=== PATIENT | male | born 1975 | race American Indian/Alaskan Native ===

== ENCOUNTER 2017-03-08 22:49 | Emergency (ER) | payer MEDICAID, OTHER ==
[2017-03-08 23:56] LABS: Basophils % (Auto) 0.9 % (0.0-1.8); Eosinophils % (Auto) 0.9 % (0.0-4.3); Hematocrit 40.8 % (35.5-45.6); Hemoglobin 13.3 gm/dl (11.8-15.2); Mean Corpuscular HGB Conc 33 % (32-34); Mean Corpuscular Hemoglobin 29 pg (28-32); Mean Corpuscular Volume 88 fl (84-94); Platelet Count 252 K/mm3 (140-440); Red Blood Count 4.61 M/mm3 (3.65-5.03); Red Cell Distribution Width 15.6 % (13.2-15.2); White Blood Count 4.1 K/mm3 (4.5-11.0)
[2017-03-09 00:26] LABS: Alanine Aminotransferase 18 units/L (7-56); Albumin 4.5 g/dL (3.9-5); Albumin/Globulin Ratio 1.5 %; Alkaline Phosphatase 55 units/L (35-129); BUN/Creatinine Ratio 16.25; Bilirubin,Total 0.2 mg/dL (0.1-1.2); Blood Urea Nitrogen 13 mg/dL (9-20); Carbon Dioxide 27 mmol/L (22-30); Chloride 96.2 mmol/L (98-107); Glucose 73 mg/dL (75-100); Lipase 40 units/L (13-60); Potassium 4.2 mmol/L (3.6-5.0); Sodium 138 mmol/L (137-145); Total Protein 7.6 g/dL (6.3-8.2)
[2017-03-09 00:54] LABS: Anion Gap 19 mmol/L
--- NOTE | 2017-03-09 04:28 | Emergency Department Report ---
ED Abdominal Pain HPI - General Chief Complaint: Abdominal Pain Stated Complaint: ABDOMINAL PAIN, HEART BURN Source: patient, family Mode of arrival: Ambulatory Limitations: No Limitations - History of Present Illness Initial Comments: Patient here complaining of abdominal pain and heartburn. Patient started yesterday. He said the pain is in his left lower quadrant. Denies any urinary burning frequency or urgency. Pain is 4-10 and feels crampy. Denies any back pain or testicular pain. Denies any fever or chills. Onset/Timin -: days(s) Location: LLQ Radiation: none Migration to: no migration Severity: mild Severity scale (0 -10): 4 Quality: cramping Consistency: constant Improves With: nothing Worsens With: nothing Context: other (unknown) Associated Symptoms: denies: nausea, vomiting, diarrhea, fever, chills, constipation, dysuria, hematemesis, hematochezia, melena, hematuria, anorexia, syncope Treatments Prior to Arrival: other (none) - Related Data Home Medications Medication Instructions Recorded Confirmed Last Taken valACYclovir [Valtrex] 500 mg PO DAILY 02/02/14 02/23/14 02/28/14 09:00 Previous Rx's Medication Instructions Recorded Last Taken Type HYDROcodone/ACETAMINOPHEN [Vicodin 5 - 325 mg PO Q6HR PRN #24 tablet 02/28/14 Unknown Rx Hp 10-300 mg Tablet] Famotidine [Pepcid] 40 mg PO QDAY #30 tablet 03/09/17 Unknown Rx traMADol [Ultram] 50 mg PO Q6HR PRN #20 tablet 03/09/17 Unknown Rx Allergies Allergy/AdvReac Type Severity Reaction Status Date / Time ibuprofen Allergy Anaphylaxis Verified 08/30/13 17:15 ED Review of Systems ROS: Stated complaint: ABDOMINAL PAIN, HEART BURN Other details as noted in HPI Comment: All other systems reviewed and negative Constitutional: denies: chills, fever Eyes: denies: eye pain ENT: denies: throat pain Respiratory: no symptoms reported Cardiovascular: denies: chest pain, palpitations, edema, syncope Gastrointestinal: denies: abdominal pain, nausea, vomiting Musculoskeletal: denies: back pain, arthralgia Skin: denies: rash Neurological: denies: headache, weakness, numbness, paresthesias, confusion, abnormal gait, vertigo ED Past Medical Hx - Past Medical History Previous Medical History?: Yes Hx GERD: Yes - Surgical History Past Surgical History?: No - Family History Family history: no significant - Social History Smoking Status: Current Every Day Smoker Substance Use Type: None - Medications Home Medications: Home Medications Medication Instructions Recorded Confirmed Last Taken Type valACYclovir [Valtrex] 500 mg PO DAILY 02/02/14 02/23/14 02/28/14 09:00 History HYDROcodone/ACETAMINOPHEN [Vicodin 5 - 325 mg PO Q6HR PRN #24 tablet 02/28/14 Unknown Rx Hp 10-300 mg Tablet] Famotidine [Pepcid] 40 mg PO QDAY #30 tablet 03/09/17 Unknown Rx traMADol [Ultram] 50 mg PO Q6HR PRN #20 tablet 03/09/17 Unknown Rx ED Physical Exam - General Limitations: No Limitations General appearance: alert, in no apparent distress - Head Head exam: Present: atraumatic, normocephalic, normal inspection - Eye Eye exam: Present: normal appearance, PERRL, EOMI. Absent: periorbital swelling , periorbital tenderness Pupils: Present: normal accommodation - ENT ENT exam: Present: normal exam, normal orophraynx, mucous membranes moist, TM's normal bilaterally, normal external ear exam - Neck Neck exam: Present: normal inspection, full ROM. Absent: tenderness, meningismus, lymphadenopathy - Respiratory Respiratory exam: Present: normal lung sounds bilaterally. Absent: respiratory distress, chest wall tenderness - Cardiovascular Cardiovascular Exam: Present: regular rate, normal rhythm, normal heart sounds - GI/Abdominal GI/Abdominal exam: Present: soft, normal bowel sounds. Absent: distended, tenderness, guarding, rebound, rigid - Extremities Exam Extremities exam: Present: normal inspection, full ROM, normal capillary refill. Absent: tenderness, pedal edema, joint swelling, calf tenderness - Back Exam Back exam: Present: normal inspection, full ROM. Absent: tenderness, CVA tenderness (R), CVA tenderness (L), muscle spasm, paraspinal tenderness, vertebral tenderness, rash noted - Neurological Exam Neurological exam: Present: alert, oriented X3, normal gait, reflexes normal. Absent: motor sensory deficit - Psychiatric Psychiatric exam: Present: normal affect, normal mood - Skin Skin exam: Present: warm, dry, intact, normal color. Absent: rash ED Course Vital Signs 03/08/17 03/09/17 23:27 07:13 Temperature 98.4 F Pulse Rate 72 67 Respiratory 18 16 Rate Blood Pressure 125/90 Blood Pressure 119/85 [Left] O2 Sat by Pulse 100 98 Oximetry - Reevaluation(s) Reevaluation #1: 03/09/17 08:44 Patient stable throughout ED stay ED Medical Decision Making - Lab Data Result diagrams: 03/08/17 23:35 03/08/17 23:35 Lab Results 03/08/17 03/08/17 03/09/17 Range/Units 23:35 23:35 04:49 WBC 4.1 L (4.5-11.0) K/mm3 RBC 4.61 (3.65-5.03) M/mm3 Hgb 13.3 (11.8-15.2) gm/dl Hct 40.8 (35.5-45.6) % MCV 88 (84-94) fl MCH 29 (28-32) pg MCHC 33 (32-34) % RDW 15.6 H (13.2-15.2) % Plt Count 252 (140-440) K/mm3 Lymph % (Auto) 45.1 H (13.4-35.0) % Archuleta % (Auto) 10.5 H (0.0-7.3) % Eos % (Auto) 0.9 (0.0-4.3) % Baso % (Auto) 0.9 (0.0-1.8) % Lymph # 1.8 (1.2-5.4) K/mm3 Archuleta # 0.4 (0.0-0.8) K/mm3 Eos # 0.0 (0.0-0.4) K/mm3 Baso # 0.0 (0.0-0.1) K/mm3 Seg Neutrophils % 42.6 (40.0-70.0) % Seg Neutrophils # 1.7 L (1.8-7.7) K/mm3 Sodium 138 (137-145) mmol/L Potassium 4.2 (3.6-5.0) mmol/L Chloride 96.2 L (98-107) mmol/L Carbon Dioxide 27 (22-30) mmol/L Anion Gap 19 mmol/L BUN 13 (9-20) mg/dL Creatinine 0.8 (0.8-1.5) mg/dL Estimated GFR > 60 ml/min BUN/Creatinine Ratio 16.25 % Glucose 73 L (75-100) mg/dL Calcium 9.0 (8.4-10.2) mg/dL Total Bilirubin 0.2 (0.1-1.2) mg/dL AST 32 (5-40) units/L ALT 18 (7-56) units/L Alkaline Phosphatase 55 (35-129) units/L Total Protein 7.6 (6.3-8.2) g/dL Albumin 4.5 (3.9-5) g/dL Albumin/Globulin Ratio 1.5 % Lipase 40 (13-60) units/L Urine Color Yellow (Yellow) Urine Turbidity Clear (Clear) Urine pH 5.0 (5.0-7.0) Ur Specific Mclaughlin 1.017 (1.003-1.030) Urine Protein <15 mg/dl (Negative) mg/dL Urine Glucose (UA) Neg (Negative) mg/dL Urine Ketones Neg (Negative) mg/dL Urine Blood Neg (Negative) Urine Nitrite Neg (Negative) Urine Bilirubin Neg (Negative) Urine Urobilinogen < 2.0 (<2.0) mg/dL Ur Leukocyte Esterase Neg (Negative) Urine WBC (Auto) 1.0 (0.0-6.0) /HPF Urine RBC (Auto) 2.0 (0.0-6.0) /HPF Urine Mucus Few /HPF - Radiology Data Radiology results: report reviewed CT scan of IV contrast revealed normal exam of abdomen and pelvis - Medical Decision Making ED course: I and abdominal pain unspecified cause. Also reporting flareup of acid reflux. He said he was drinking yesterday and he has a history of gastritis. He reports that he was burping a lot but not right now. 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 Patient able to drink fluids in emergency room. Patient discharged home with prescription for Pepcid and Ultram. Critical care attestation.: If time is entered above; I have spent that time in minutes in the direct care of this critically ill patient, excluding procedure time. ED Disposition Clinical Impression: Dyspepsia Abdominal pain Qualifiers: Abdominal location: left lower quadrant Qualified Code(s): R10.32 - Left lower quadrant pain Disposition: DISCHARGED TO HOME OR SELFCARE Is pt being admited?: No Does the pt Need Aspirin: No Condition: Stable Instructions: Chronic Indigestion (ED), Abdominal Pain (ED) Additional Instructions: follow-up with supervisor bridges and buildings for further evaluation and treatment of acid reflux and abdominal pain. Avoid drinking alcohol and eating spicy food. Avoid carbonated beverages Prescriptions: Famotidine [Pepcid] 40 mg PO QDAY #30 tablet traMADol [Ultram] 50 mg PO Q6HR PRN #20 tablet PRN Reason: Pain Referrals: PRIMARY CARE, [Primary Care Provider] - 2-3 Days [facility] [Provider Group] - 2-3 Days [facility] [Outside] - 2-3 Days Forms: Accompanied Note, Work/School Release Form(ED)
[2017-03-09] MEDS: NACL ONE (05:15)
[2017-03-09 05:41] LABS: Bilirubin,Urine NEG (Negative); Blood,Urine NEG (Negative); Ketones,Urine NEG (Negative); Leukocyte Esterase,Urine NEG (Negative); Mucus,Urine FEW /HPF; Nitrite,Urine NEG (Negative); Protein,Urine <15 mg/dL mg/dL (Negative); Urobilinogen,Urine < 2.0 mg/dL (<2.0)
--- NOTE | 2017-03-09 05:48 | Cat Scan Report ---
FINAL REPORT PROCEDURE: CT ABDOMEN PELVIS W CON TECHNIQUE: Computerized axial tomography of the abdomen and pelvis was performed after the IV injection of iodinated nonionic contrast. HISTORY: abdominal pain COMPARISON: 02/19/2014 FINDINGS: Visualized lower thorax: No significant abnormality. Liver: Normal size and attenuation. Spleen: Normal size and attenuation. Gallbladder and biliary system: Normal. Pancreas: Normal. Adrenals: Normal. Kidneys: Normal. GI tract: No obstruction. No ileus or enteritis. The cecum and colon are normal. The appendix has a normal appearance.. Lymph nodes and mesentery: Normal. Vasculature: Normal. Bladder: Normal. Reproductive organs: Normal. Peritoneum: No free fluid. Musculoskeletal structures: No significant abnormality. Other: None. IMPRESSION: There is no evidence of intestinal or urinary tract obstruction. No ileus or enteritis. The appendix is normal.
[2017-03-09 07:14] VITALS: BP 119/85
== END 2017-03-09 07:13 | disposition home or self-care (01) ==
LOC: ED 22:49
DX: R10.13 Epigastric pain (principal); R10.32 Left lower quadrant pain; Z88.6 Allergy status to analgesic agent; K21.9 Gastro-esophageal reflux disease without esophagitis; F17.200 Nicotine dependence, unspecified, uncomplicated
CPT/HCPCS: 36415; 74177; 80053; 81001; 83690; 85025; 87086; 99284; Q9967

== ENCOUNTER 2017-09-06 18:28 | Emergency (ER) | payer SELFPAY ==
[2017-09-06] MEDS ORDERED: ROXICODONE PO ONE (20:19)
[2017-09-06 21:11] LABS: Hematocrit 43.9 % (35.5-45.6); Hemoglobin 14.1 gm/dl (11.8-15.2); Mean Corpuscular HGB Conc 32 % (32-34); Mean Corpuscular Hemoglobin 29 pg (28-32); Mean Corpuscular Volume 91 fl (84-94); Platelet Count 271 K/mm3 (140-440); Red Blood Count 4.83 M/mm3 (3.65-5.03); Red Cell Distribution Width 15.6 % (13.2-15.2); White Blood Count 6.3 K/mm3 (4.5-11.0)
[2017-09-06 21:14] LABS: Anion Gap 17 mmol/L; BUN/Creatinine Ratio 13; Blood Urea Nitrogen 10 mg/dL (9-20); Calcium 9.3 mg/dL (8.4-10.2); Carbon Dioxide 29 mmol/L (22-30); Chloride 98.2 mmol/L (98-107); Creatine Kinase 153 units/L (55-170); Glucose 81 mg/dL (75-100); Potassium 4.3 mmol/L (3.6-5.0); Sodium 140 mmol/L (137-145)
[2017-09-07 08:05] LABS: Bacteria,Urine 1+ /HPF (Negative); Bilirubin,Urine NEG (Negative); Blood,Urine LG (Negative); Ketones,Urine NEG (Negative); Leukocyte Esterase,Urine LG (Negative); Mucus,Urine FEW /HPF; Nitrite,Urine POS (Negative)
[2017-09-07 08:09] LABS: WBC,Urine > 182.0 /HPF (0.0-6.0)
[2017-09-07] MEDS ORDERED: NACL 0.9% 1000 ML 1,000 ML IV ONE (10:14)
[2017-09-07] MEDS ORDERED: ROCEPHIN/NS 1 GM/50 ML 1 GM/50 ML BAG IV ONE (10:14)
[2017-09-07] MEDS ORDERED: MORPHINE IV ONE (10:14)
--- NOTE | 2017-09-07 10:26 | Emergency Department Report ---
HPI - General Chief Complaint: Urogenital-Male Time Seen by Provider: 09/07/17 10:05 - HPI HPI: This is a 42-year-old Afro-[place] male presents to the emergency department with complaint of a 3 to four-day history of some painful urination and some right lower quadrant/flank pain. The patient says that he noticed some blood in the urine recently. He did not take anything for his symptoms prior to presentation. He denies any past medical history. He does not have a primary care physician. No recent travel or sick contacts at home. Patient says that he has in a committed relationship and denies any concern for STD and also has not been having any penile discharge or any lesions. He denies any fever, back pain, nausea, vomiting. ED Past Medical Hx - Past Medical History Previous Medical History?: Yes Hx GERD: Yes - Surgical History Past Surgical History?: Yes Additional Surgical History: Head and Hernia - Social History Smoking Status: Current Every Day Smoker Substance Use Type: Alcohol - Medications Home Medications: Home Medications Medication Instructions Recorded Confirmed Last Taken Type valACYclovir [Valtrex] 500 mg PO DAILY 02/02/14 02/23/14 02/28/14 09:00 History Famotidine [Pepcid] 40 mg PO QDAY #30 tablet 03/09/17 Unknown Rx traMADol [Ultram] 50 mg PO Q6HR PRN #20 tablet 03/09/17 Unknown Rx Cephalexin [Keflex] 500 mg PO Q8HR #21 cap 09/07/17 Unknown Rx HYDROcodone/ACETAMINOPHEN [Vicodin 5 - 325 mg PO Q6HR PRN #12 tablet 09/07/17 Unknown Rx HP 10-300 mg TAB] ED Review of Systems ROS: Stated complaint: PAINFUL URINATION/RT ABD PAIN Other details as noted in HPI Comment: All other systems reviewed and negative Constitutional: denies: chills, fever Eyes: denies: eye pain, eye discharge, vision change ENT: denies: ear pain, throat pain Respiratory: denies: cough, shortness of breath, wheezing Cardiovascular: denies: chest pain, palpitations Gastrointestinal: abdominal pain. denies: nausea, vomiting Genitourinary: dysuria, hematuria. denies: discharge Musculoskeletal: denies: back pain, joint swelling, arthralgia Skin: denies: rash, lesions Neurological: denies: headache, weakness, paresthesias Physical Exam - Physical Exam Vital Signs: Vital Signs 09/06/17 09/06/17 09/07/17 20:12 20:30 07:57 Temperature 98.4 F 99 F Pulse Rate 62 72 Respiratory 18 18 Rate Blood Pressure 117/75 Blood Pressure 103/74 [Left] O2 Sat by Pulse 98 100 Oximetry Physical Exam: GENERAL: The patient is well-developed well-nourished. HENT: Normocephalic. Atraumatic. Patient has moist mucous membranes. EYES: Extraocular motions are intact. Pupils equal reactive to light bilaterally. NECK: Supple. Trachea is midline. CHEST/LUNGS: Clear to auscultation. There is no respiratory distress noted. HEART/CARDIOVASCULAR: Regular. There is no tachycardia. There is no gallop rub or murmur. ABDOMEN: Abdomen is soft. Unable to reproduce his flank and abdominal pain to palpation. Patient has normal bowel sounds. There is no abdominal distention. SKIN: Skin is warm and dry. NEURO: The patient is awake, alert, and oriented. The patient is cooperative. The patient has no focal neurologic deficits. The patient has normal speech and gait. MUSCULOSKELETAL: There is no tenderness or deformity. There is no limitation range of motion. There is no evidence of acute injury. ED Course Vital Signs 09/06/17 09/06/17 09/07/17 20:12 20:30 07:57 Temperature 98.4 F 99 F Pulse Rate 62 72 Respiratory 18 18 Rate Blood Pressure 117/75 Blood Pressure 103/74 [Left] O2 Sat by Pulse 98 100 Oximetry ED Medical Decision Making - Lab Data Result diagrams: 09/06/17 20:39 09/06/17 20:39 - Radiology Data Radiology results: report reviewed CT OF THE ABDOMEN AND PELVIS WITHOUT CONTRAST HISTORY: Right flank pain, hematuria, UTI.. TECHNIQUE: Helical CT without contrast. Sagittal and coronal reformatted images. FINDINGS: A solitary 2 mm calyceal stone is noted in the inferior right kidney. No additional renal stones are appreciated. The course of the right ureter is difficult to follow secondary to lack of intra-abdominal fat. There are 2 calcifications in the vicinity of the proximal right ureter measuring up to 2 mm on image 174, series 2 which could represent nonobstructing right ureteral stones. There is mild diffuse bladder wall thickening which is consistent with a cystitis. No bladder stones are visualized. Within the limits of a noncontrast exam, the remaining abdominal and pelvic viscera are within normal limits. The liver, biliary system, pancreas, spleen, and adrenal glands are unremarkable. The bowel loops are normal caliber and wall thickness. Normal appendix. The aorta is normal caliber. No ascites, bulky adenopathy or inflammatory changes. The lung bases are clear. Normal heart size. No suspicious bony lesion. IMPRESSION: Right nephrolithiasis as outlined above. Findings consistent with cystitis. - Medical Decision Making 42-year-old male presents with some right-sided flank pain and some dysuria and no hematuria. Labs show a significant urinary tract infection with some hematuria. No leukocytosis and no renal insufficiency. CT was done that showed a intrarenal stone and suspicion for 2 cm ureteral stone. However radiology had trouble definitively listing the ureteral stone as the patient does not have a lot of adipose tissue. However with the UTI, flank pain and hematuria it does appear consistent with renal colic and nephrolithiasis. He was given a dose of IV antibiotics and IV fluid resuscitation. Patient will be discharged home with pain medication and antibiotics and a strainer for his urine to try and catch the calculus. He will be given a referral for both primary care and urology. He will return to the ER with any worsening of symptoms or any acute distress. - Differential Diagnosis nephrolithiasis, pyelonephritis, appendicitis, colitis Critical Care Time: No Critical care attestation.: If time is entered above; I have spent that time in minutes in the direct care of this critically ill patient, excluding procedure time. ED Disposition Clinical Impression: Right flank pain, Renal colic on right side, Nephrolithiasis UTI (urinary tract infection) Qualifiers: Urinary tract infection type: acute cystitis Hematuria presence: with hematuria Qualified Code(s): N30.01 - Acute cystitis with hematuria Disposition: TO HOME OR SELFCARE Is pt being admited?: No Condition: Stable Instructions: Kidney Stones (ED), Renal Colic (ED), How to Strain Your Urine ( ED), Flank Pain (ED) Additional Instructions: Please follow up with a primary care physician in the next few days. I have given you a referral for a local urologist, Dr. Ernst, to follow up regarding your urinary tract infection and suspected kidney stones. Return to the emergency department with any development of fever, inability to urinate, worsening of your symptoms, or any acute distress. You have been prescribed a medication that is sedating and therefore should not be taken prior to driving, working, and responsible for children and in no way should be mixed with alcohol of any quantity. Prescriptions: HYDROcodone/ACETAMINOPHEN [Vicodin HP 10-300 mg TAB] 5 - 325 mg PO Q6HR PRN #12 tablet PRN Reason: Pain Referrals: PRIMARY CARE, [Primary Care Provider] - 3-5 Days LETY ERNST MD [Staff Physician] - 3-5 Days JEAN CLAUDE MCCLELLAN MD [Staff Physician] - 3-5 Days [facility] [Outside] - 3-5 Days Forms: Work/School Release Form(ED) Time of Disposition: 12:10
--- NOTE | 2017-09-07 11:56 | Cat Scan Report ---
CT OF THE ABDOMEN AND PELVIS WITHOUT CONTRAST HISTORY: Right flank pain, hematuria, UTI.. TECHNIQUE: Helical CT without contrast. Sagittal and coronal reformatted images. FINDINGS: A solitary 2 mm calyceal stone is noted in the inferior right kidney. No additional renal stones are appreciated. The course of the right ureter is difficult to follow secondary to lack of intra-abdominal fat. There are 2 calcifications in the vicinity of the proximal right ureter measuring up to 2 mm on image 174, series 2 which could represent nonobstructing right ureteral stones. There is mild diffuse bladder wall thickening which is consistent with a cystitis. No bladder stones are visualized. Within the limits of a noncontrast exam, the remaining abdominal and pelvic viscera are within normal limits. The liver, biliary system, pancreas, spleen, and adrenal glands are unremarkable. The bowel loops are normal caliber and wall thickness. Normal appendix. The aorta is normal caliber. No ascites, bulky adenopathy or inflammatory changes. The lung bases are clear. Normal heart size. No suspicious bony lesion. IMPRESSION: Right nephrolithiasis as outlined above. Findings consistent with cystitis.
[2017-09-07 12:42] VITALS: BP 122/74
== END 2017-09-07 12:30 | disposition home or self-care (01) ==
LOC: ED 18:28
DX: N20.0 Calculus of kidney (principal); N39.0 Urinary tract infection, site not specified; F17.210 Nicotine dependence, cigarettes, uncomplicated; K21.9 Gastro-esophageal reflux disease without esophagitis
CPT/HCPCS: 36415; 74176; 80048; 81001; 82550; 85027; 87591; 96365; 96375; 99284; J0696; J2270; J7030

== ENCOUNTER 2018-03-11 17:31 | Emergency (ER) | payer OTHER ==
[2018-03-11 17:52] VITALS: BP 110/73
== END 2018-03-11 22:13 | disposition left against medical advice (07) ==
LOC: ED 17:31
DX: R51 Headache (principal); M79.1 Myalgia; Z53.21 Procedure and treatment not carried out due to patient leaving prior to being seen by health care provider

== ENCOUNTER 2018-05-23 16:48 | Emergency (ER) | payer SELFPAY ==
[2018-05-23 22:15] VITALS: BP 130/68
[2018-05-23 22:25] LABS: Bacteria,Urine 1+ /HPF (Negative); Bilirubin,Urine NEG (Negative); Blood,Urine NEG (Negative); Color,Urine Yellow (Yellow); Mucus,Urine FEW /HPF; Protein,Urine <15 mg/dL mg/dL (Negative); Urobilinogen,Urine < 2.0 mg/dL (<2.0)
[2018-05-23] MEDS ORDERED: TORADOL IM ONE (22:52)
--- NOTE | 2018-05-23 22:59 | Emergency Department Report ---
HPI - General Chief Complaint: Urogenital-Male Time Seen by Provider: 05/23/18 22:43 - HPI HPI: [place] 25 The patient is a 43-year-old male presenting with chief complaint of right flank pain. The patient states for 3 weeks she's had bilateral flank pain but now is limited to the right side. The patient states 1 week ago he had a few episodes of hematuria but has since resolved. The patient states this presentation is similar to his presentation last year when he was diagnosed with kidney stones. Patient denies dysuria or penile discharge. The patient currently gets his pain is score of 7/10 Location: Right flank Duration: [See above] Quality: Pain Severity:7/10 Modifying factors: [see above] Context: [see above] Mode of transportation: Taxi ED Past Medical Hx - Past Medical History Previous Medical History?: Yes Hx GERD: Yes - Surgical History Past Surgical History?: Yes Additional Surgical History: Skin excision from scalp. Herniorrhaphy - Family History Family history: no significant - Social History Smoking Status: Current Every Day Smoker (1/7 per day) Substance Use Type: None (denies illicit drug use), Alcohol (occasional) - Medications Home Medications: Home Medications Medication Instructions Recorded Confirmed Last Taken Type valACYclovir [Valtrex] 500 mg PO DAILY 02/02/14 02/23/14 02/28/14 09:00 History Famotidine [Pepcid] 40 mg PO QDAY #30 tablet 03/09/17 Unknown Rx traMADol [Ultram] 50 mg PO Q6HR PRN #20 tablet 03/09/17 Unknown Rx Cephalexin [Keflex] 500 mg PO Q8HR #21 cap 09/07/17 Unknown Rx HYDROcodone/ACETAMINOPHEN [Vicodin 5 - 325 mg PO Q6HR PRN #12 tablet 09/07/17 Unknown Rx HP 10-300 mg TAB] Metaxalone [Skelaxin] 800 mg PO TID #10 tablet 05/24/18 Unknown Rx traMADol [Ultram] 50 mg PO Q6HR PRN #14 tablet 05/24/18 Unknown Rx ED Review of Systems ROS: Stated complaint: BLOOD IN URINE Other details as noted in HPI Constitutional: fever (subjective) Eyes: denies: eye pain ENT: denies: throat pain Cardiovascular: denies: chest pain Gastrointestinal: denies: abdominal pain Genitourinary: hematuria. denies: dysuria, discharge Musculoskeletal: back pain (right flank pain) Neurological: denies: headache Physical Exam - Physical Exam Vital Signs: Vital Signs 05/23/18 05/23/18 05/23/18 17:06 22:14 22:15 Temperature 98.3 F 99 F Pulse Rate 96 H 102 H Respiratory 18 16 18 Rate Blood Pressure 133/102 Blood Pressure 130/68 [Left] O2 Sat by Pulse 100 97 97 Oximetry Physical Exam: GENERAL: The patient is well-developed well-nourished male lying on stretcher not appearing to be in acute distress. [] HEENT: Normocephalic. Atraumatic. Extraocular motions are intact. Patient has moist mucous membranes. NECK: Supple. Trachea midline CHEST/LUNGS: Clear to auscultation. There is no respiratory distress noted. HEART/CARDIOVASCULAR: Regular. There is no tachycardia. There is no gallop rub or murmur. ABDOMEN: Abdomen is soft, nontender. Patient has normal bowel sounds. There is no abdominal distention. SKIN: There is no rash. There is no edema. There is no diaphoresis. NEURO: The patient is awake, alert, and oriented. The patient is cooperative. The patient has normal speech and gait. MUSCULOSKELETAL: There is no CVA tenderness. There is no evidence of acute injury. ED Course Vital Signs 05/23/18 05/23/18 05/23/18 17:06 22:14 22:15 Temperature 98.3 F 99 F Pulse Rate 96 H 102 H Respiratory 18 16 18 Rate Blood Pressure 133/102 Blood Pressure 130/68 [Left] O2 Sat by Pulse 100 97 97 Oximetry ED Medical Decision Making - Lab Data Result diagrams: 05/23/18 23:27 05/23/18 23:27 Laboratory Tests 05/23/18 05/23/18 05/23/18 22:00 23:27 23:27 WBC 4.7 RBC 5.09 H Hgb 14.8 Hct 44.4 MCV 87 MCH 29 MCHC 33 RDW 15.2 Plt Count 280 Lymph % (Auto) 46.3 H Richardson % (Auto) 8.3 H Eos % (Auto) 0.6 Baso % (Auto) 1.8 Lymph # 2.2 Richardson # 0.4 Eos # 0.0 Baso # 0.1 Seg Neutrophils % 43.0 Seg Neutrophils # 2.0 Sodium 132 L Potassium 4.1 Chloride 95.2 L Carbon Dioxide 25 Anion Gap 16 BUN 10 Creatinine 0.7 L Estimated GFR > 60 BUN/Creatinine Ratio 14 Glucose 88 Calcium 9.2 Urine Color Yellow Urine Turbidity Clear Urine pH 5.0 Ur Specific [place] 1.006 Urine Protein <15 mg/dl Urine Glucose (UA) Neg Urine Ketones Neg Urine Blood Neg Urine Nitrite Neg Urine Bilirubin Neg Urine Urobilinogen < 2.0 Ur Leukocyte Esterase Neg Urine WBC (Auto) 0.0 Urine RBC (Auto) 3.0 Urine Bacteria (Auto) 1+ Urine Mucus Few - Radiology Data Radiology results: report reviewed (CT abdomen and pelvis), image reviewed (CT abdomen pelvis) [facility] [address] [place] [address] Cat Scan Report Signed Patient: CARMENCITA MCNAMARA MR#: [id number] : 1975 Acct:[id number] Age/Sex: 43 / M ADM Date: 05/23/18 Loc: ED Attending Dr: Ordering Physician: CAIN VAZQUEZ MD Date of Service: 05/23/18 Procedure(s): CT abdomen pelvis wo con Accession Number(s): [id number] cc: CAIN VAZQUEZ MD FINAL REPORT EXAM: CT ABDOMEN PELVIS WO CON HISTORY: right flank pain, hematuria COMPARISON: CT of the abdomen pelvis August 2017. TECHNIQUE: Contiguous axial images were obtained. Additional sagittal and coronal reformatted images were obtained. FINDINGS: Lung bases are clear. Liver, spleen, pancreas are grossly unremarkable. No adrenal mass. No calcified gallstones. Single 2 millimeter nonobstructive right renal calculus. No hydronephrosis or perinephric fat stranding bilaterally. No renal calculi on the left. Aorta and IVC are normal in caliber. There are few pelvic phleboliths leads appear to be separate from the distal ureters. No definite ureteral or urinary bladder calculi. Urinary bladder is partially decompressed. Prostate gland is grossly unremarkable. No free fluid or lymphadenopathy in the pelvic cavity. Large and small bowel loops normal in caliber. The appendix is gas-filled and best seen on the coronal images measuring up to 5 millimeters in diameter (series 602, image 30). Lumbar vertebral body heights are preserved. Bony pelvis is grossly intact. IMPRESSION: 2 millimeter nonobstructive right renal calculus. No hydronephrosis bilaterally. Large and small bowel loops normal in caliber. No focal inflammatory changes the bowel. The appendix is normal in caliber. Transcribed By: LMA Dictated By: KINJAL COOPER MD Electronically Authenticated By: KINJAL COOPER MD Signed Date/Time: 05/24/1834 DD/ TD/TT: 05/24/1834 - Differential Diagnosis renal colic, UTI, Critical care attestation.: If time is entered above; I have spent that time in minutes in the direct care of this critically ill patient, excluding procedure time. ED Disposition Clinical Impression: Right flank pain, Hematuria, Nephrolithiasis Disposition: TO HOME OR SELFCARE Is pt being admited?: No Does the pt Need Aspirin: No Condition: Stable Instructions: Renal Colic (ED) Additional Instructions: Return to the emergency department immediately should you develop worsening symptoms, fever, inability to tolerate food or liquid or any other concerns. Prescriptions: Metaxalone [Skelaxin] 800 mg PO TID #10 tablet traMADol [Ultram] 50 mg PO Q6HR PRN #14 tablet PRN Reason: Pain Referrals: PRIMARY CARE, [Primary Care Provider] - 3-5 Days LETY ERNST MD [Staff Physician] - 3-5 Days (Dr. Ernst is a urologist. Please follow up with him for further evaluation) Time of Disposition: 00:49
[2018-05-23 23:53] LABS: Basophils # (Auto) 0.1 K/mm3 (0.0-0.1); Basophils % (Auto) 1.8 % (0.0-1.8); Eosinophils % (Auto) 0.6 % (0.0-4.3); Hematocrit 44.4 % (35.5-45.6); Hemoglobin 14.8 gm/dl (11.8-15.2); Lymphocytes # (Auto) 2.2 K/mm3 (1.2-5.4); Lymphocytes % (Auto) 46.3 % (13.4-35.0); Mean Corpuscular HGB Conc 33 % (32-34); Mean Corpuscular Hemoglobin 29 pg (28-32); Mean Corpuscular Volume 87 fl (84-94); Monocytes # (Auto) 0.4 K/mm3 (0.0-0.8); Monocytes % (Auto) 8.3 % (0.0-7.3); Platelet Count 280 K/mm3 (140-440); Red Blood Count 5.09 M/mm3 (3.65-5.03); Red Cell Distribution Width 15.2 % (13.2-15.2)
[2018-05-24 00:19] LABS: BUN/Creatinine Ratio 14; Blood Urea Nitrogen 10 mg/dL (9-20); Calcium 9.2 mg/dL (8.4-10.2); Hemolysis Index 8
--- NOTE | 2018-05-24 00:40 | Cat Scan Report ---
FINAL REPORT EXAM: CT ABDOMEN PELVIS WO CON HISTORY: right flank pain, hematuria COMPARISON: CT of the abdomen pelvis August 2017. TECHNIQUE: Contiguous axial images were obtained. Additional sagittal and coronal reformatted images were obtained. FINDINGS: Lung bases are clear. Liver, spleen, pancreas are grossly unremarkable. No adrenal mass. No calcified gallstones. Single 2 millimeter nonobstructive right renal calculus. No hydronephrosis or perinephric fat stranding bilaterally. No renal calculi on the left. Aorta and IVC are normal in caliber. There are few pelvic phleboliths leads appear to be separate from the distal ureters. No definite ureteral or urinary bladder calculi. Urinary bladder is partially decompressed. Prostate gland is grossly unremarkable. No free fluid or lymphadenopathy in the pelvic cavity. Large and small bowel loops normal in caliber. The appendix is gas-filled and best seen on the coronal images measuring up to 5 millimeters in diameter (series 602, image 30). Lumbar vertebral body heights are preserved. Bony pelvis is grossly intact. IMPRESSION: 2 millimeter nonobstructive right renal calculus. No hydronephrosis bilaterally. Large and small bowel loops normal in caliber. No focal inflammatory changes the bowel. The appendix is normal in caliber.
== END 2018-05-24 00:58 | disposition home or self-care (01) ==
LOC: ED 16:48
DX: N20.0 Calculus of kidney (principal); K21.9 Gastro-esophageal reflux disease without esophagitis; F17.200 Nicotine dependence, unspecified, uncomplicated
CPT/HCPCS: 36415; 74176; 80048; 81001; 85025; 96372; 99284; J1885